=== PATIENT | female | born 1970 | race Caucasian/White ===

== ENCOUNTER → 2020-12-28 13:44 | Outpatient (CLI) | payer OTHER, SELFPAY ==
--- NOTE | ~2020-12-28 | MR_ITS ---
EXAMINATION: MR knee LT wo con DATE: 12/28/2020 14:26 INDICATION: Chronic left knee pain TECHNIQUE: Magnetic resonance imaging (MRI) of the left knee was performed without intravenous contra st. Sequences included coronal PD-weighted FSE, coronal PD-weighted FS FSE, sagittal T2-weighted FSE , sagittal PD-weighted FS FSE and axial PD weighted fat saturated FSE. COMPARISON: None. FINDINGS: Medial compartment: Medial meniscus is normal. Articular cartilage is normal. Lateral compartment: Lateral meniscus is normal. Small region of partial-thickness chondral fissuring without degenerative subchondral changes at the posterior central aspect of the lateral tibial plateau. Cartilage along t he weightbearing lateral femoral condyle appears relatively preserved. Patellofemoral compartment: Small region of deep chondral fissuring without degenerative subchondral changes at the junction of t he medial and odd patellar facets. Shallow chondral fissuring at the junction of the lateral facet an d apical ridge. Trochlear cartilage is normal. Ligaments and tendons: Full-thickness tear at the central aspect of the anterior cruciate ligament. Posterior cruciate ligam ent is normal.. The medial collateral ligament and fibular collateral ligament complex are normal. Mi ld distal quadriceps tendinopathy without discrete tear. The patellar tendon is normal. The visualize d medial and lateral hamstring tendons as well as the iliotibial band are normal. Fluid: Small to moderate-sized left knee joint effusion. There is a suprapatellar plical band. No loose oste ochondral bodies identified. 4.0 x 2.7 x 0.6 cm Avalos's cyst. Osseous/other: Marrow edema without discrete fracture line at the posterior rim of the lateral tibial plateau consis tent with a bone contusion secondary to anterior tibial subluxation injury occurring in conjunction w ith the anterior cruciate ligament tear. Small focus of likely red marrow reexpansion at the posterio r metaphyseal region of the distal femur. No fracture or pathologic marrow replacing process. IMPRESSION: 1. Complete tear of the anterior cruciate ligament and likely secondary bone contusion along the post erior of the lateral tibial plateau. 2. Mild lateral and patellofemoral compartment osteoarthritis with regions of moderate grade chondrom alacia at the patella and lateral tibial plateau. 3. Small to moderate-sized left knee joint effusion and small to moderate-sized Avalos's cyst. 4. Mild distal quadriceps tendinopathy without discrete tear. Reviewed, dictated and finalized at location A. IMPRESSION: 1. Complete tear of the anterior cruciate ligament and likely secondary bone co ntusion along the posterior of the lateral tibial plateau. 2. Mild lateral and patellofemoral compartment osteoarthritis with regions of m oderate grade chondromalacia at the patella and lateral tibial plateau. 3. Small to moderate-sized left knee joint effusion and small to moderate-sized Avalos's cyst. 4. Mild distal quadriceps tendinopathy without discrete tear.
== END ==
PROVIDERS: PCP Internal Medicine; Visit Provider Orthopaedic Surgery
DX: S83.512A Sprain of anterior cruciate ligament of left knee, initial encounter (principal); M25.462 Effusion, left knee; M17.12 Unilateral primary osteoarthritis, left knee
CPT/HCPCS: 73721